=== PATIENT | female | born 1980 | race Caucasian/White ===

== ENCOUNTER 2016-05-04 16:28 | Emergency (ER) | payer MEDICAID ==
[~2016-05-04] VITALS: Ht 175.3 cm; Wt 101.2 kg
[~2016-05-04 16:28] MED LIST: ACYC1CAP16 PO
[2016-05-04 16:30] VITALS: BP 128/87; PULSE 91; RESP 15; TEMP 98.5; O2SAT 96
--- NOTE | 2016-05-04 17:41 | RADHPO ---
EXAM DATE/TIME: 05/04/2016 17:02 [place] COMPARISON: No previous studies available for comparison. INDICATIONS : Left knee pain for 2 days with no known trauma MEDICAL HISTORY : None. SURGICAL HISTORY : None. ENCOUNTER: Initial ACUITY: 2 days PAIN SCORE: 10/10 LOCATION: Left anterior knee FINDINGS: There are several small ossific bodies present a couple of which appear to be likely within the joint space, one in the retropatellar region and one in the intercondylar region anteriorly. There is no e vidence of joint effusion, fracture or destructive change. Mineralization and alignment are satisfact ory. CONCLUSION: No acute bony findings. Likely small ossific loose bodies Buster Lee MD on May 04, 2016 at 17:35 Board Certified Radiologist. This report was verified electronically.
--- NOTE | 2016-05-04 17:45 | PD ---
HPI Chief Complaint: Pain: Acute or Chronic Time Seen by Provider: 17:41 Travel History International Travel<30 days: No Contact w/Intl Traveler<30days: No Traveled to known affect area: No History of Present Illness HPI 35-year-old female that presents to the ED for evaluation of left knee pain that she's had on and off for sometime as well as worsening today. Per patient was contacted and she fell On her left knee. Per patient the pain is in the medial aspect of the knee. She denies any injury other than an injury when she was younger in school. She denies any chest or shortness of breath. No recent travel. No twisting injury. Per patient the pain is 8 out of 10 and hurts worse with weightbearing. She denies any allergies to medication. No surgeries to the knee. No radiation of the pain. She has not seen anybody for the pain. Per patient usually pops and causes some discomfort but this is the first day that is worse where she can barely walk. PFSH Past Medical History Medical History: Denies Significant Hx Diminished Hearing: No Tetanus Vaccination: Unknown ?: Not Past Surgical History Surgical History: No Previous Surgery Social History Alcohol Use: Yes (OCC) Tobacco Use: No Substance Use: No Allergies-Medications (Allergen,Severity, Reaction): Coded Allergies: No Known Allergies (Verified , 05/04/16) Reported Meds & Prescriptions Reported Meds & Active Scripts Active No Active Prescriptions or Reported Medications Review of Systems Except as stated in HPI: all other systems reviewed are Neg Physical Exam Narrative GENERAL: SKIN: Warm and dry. HEAD: Atraumatic. Normocephalic. EYES: Pupils equal and round. No scleral icterus. No injection or drainage. ENT: No nasal bleeding or discharge. Mucous membranes pink and moist. NECK: Trachea midline. No JVD. CARDIOVASCULAR: Regular rate and rhythm. RESPIRATORY: No accessory muscle use. Clear to auscultation. Breath sounds equal bilaterally. GASTROINTESTINAL: Abdomen soft, non-tender, nondistended. Hepatic and splenic margins not palpable. MUSCULOSKELETAL: Extremities without clubbing, cyanosis, or edema. No obvious deformities. Patient has full range of motion of the upper and lower extremities bilaterally. 2+ pulses bilaterally. Patient does have reproducible pain on the medial aspect of the knee. Kayla is positive. Anterior and posterior drawer test negative. Obvious embarrassed is negative. Pain reproducible weightbearing as well as with flexion past 90. Better with extension. NEUROLOGICAL: Awake and alert. No obvious cranial nerve deficits. Motor grossly within normal limits. Five out of 5 muscle strength in the arms and legs. Normal speech. PSYCHIATRIC: Appropriate mood and affect; insight and judgment normal. Data Data Last Documented VS Vital Signs Date Time Temp Pulse Resp B/P Pulse Ox O2 Delivery O2 Flow Rate FiO2 05/04/16 16:30 98.5 91 15 128/87 96 Orders Knee, Complete (4vws) (05/04/16 ) [facility] Medical Decision Making Medical Screen Exam Complete: Yes Emergency Medical Condition: Yes Medical Record Reviewed: Yes Interpretation(s) X-ray the left knee show no sign of bony injury but what appears to be as ossifications Differential Diagnosis Internal derangement versus sprain versus strain versus fracture versus arthritis Narrative Course 35-year-old female that presents to the ED for evaluation of left knee pain. Patient was properly examined and was found to have signs and symptoms consistent appears to be internal derangement of the knee likely meniscal injury. Recommend for x-ray. Patient agrees to proceed with plan. X-ray showed no sign of fracture versus ossification some the knee. Recommendation at this time is for Mika wrap, crutches and prescription for diclofenac sodium to use as needed for pain. Patient is agreeable with this plan. My recommendation is for patient to follow up with orthopedic surgeon as this and has been ongoing for a couple of years. See ED worsening symptoms. Diagnosis Primary Impression: Internal derangement of knee Qualified Code: M23.92 - Internal derangement of knee, left Referrals: Taj Kruger MD Patient Instructions: General Instructions Additional Instructions: Take medications as prescribed. Follow-up with ortho. See ED for any worsening symptoms. Do not drink or drive while taking pain medication. Apply ice or heat as needed for pain Med/Other Pt SpecificInfo: Prescription(s) given Scripts No Active Prescriptions or Reported Meds Disposition: 01 DISCHARGE HOME Condition: Stable Akil Urena May 04, 2016 17:45
[2016-05-04] MEDS ORDERED: DICL75TA PO (17:47)
== END 2016-05-04 18:00 | disposition home or self-care (01) ==
LOC: PHEFT 16:28
DX: M23.92 Unspecified internal derangement of left knee (principal); W19.XXXA Unspecified fall, initial encounter; Y93.9 Activity, unspecified; Y92.9 Unspecified place or not applicable
CPT/HCPCS: 73564; 99283; E0113